=== PATIENT | female | born 1950 | race Caucasian/White ===

== ENCOUNTER 2018-08-12 13:03 | Emergency (ER) | payer OTHER ==
[~2018-08-12] VITALS: Ht 165.1 cm; Wt 97.5 kg
[~2018-08-12 13:03] MED LIST: CIPRO500 MG PO; FLAGYL500 MG PO; INSULIN; METFORMIN HCL500 MG PO; MIRALAX17 GM PO; VESICARE10 M1 PO; ZOLOFT50 MG PO
[2018-08-12] MEDS ORDERED: LANTUS SUBQ (13:12)
[2018-08-12] MEDS ORDERED: NOVOLOG100 UNIT/1 SUBQ (13:12)
[2018-08-12] MEDS ORDERED: FENOFIBRATE134 MG PO (13:18)
[2018-08-12] MEDS ORDERED: VITAMIN D3400 UNIT PO (13:19)
[2018-08-12] MEDS ORDERED: ASPIR 8181 M1 PO (13:21)
[2018-08-12] MEDS ORDERED: SLOW-MAG64 M1 PO (13:21)
[2018-08-12] MEDS ORDERED: AMLODIPINE BESY10 MG PO (13:22)
[2018-08-12] MEDS ORDERED: COZAAR 25 MG TA25 M1 PO (13:23)
[2018-08-12] MEDS ORDERED: B-121000 MC2 PO (13:24)
[2018-08-12] MEDS ORDERED: ATORVASTATIN CA40 MG PO (13:24)
[2018-08-12 13:35] LABS: ABSOLUTE EOSINOPHILS 0.1 thou/uL (0.0-0.7); ABSOLUTE LYMPHOCYTES 1.2 thou/uL (0.8-5.3); ABSOLUTE MONOCYTES 0.4 thou/uL (0.0-1.2); BASOPHILS 0.8 %; EOSINOPHILS 2.2 %; HEMATOCRIT 37.7 % (37.0-47.0); HEMOGLOBIN 12.3 gm/dL (12.0-15.0); MCH 28.6 pg (26.0-34.0); MCHC 32.8 g/dL (28.0-37.0); MCV 87.1 fL (80.0-100.0); MONOCYTES 7.4 %; MPV 8.1 fl. (7.2-11.1); NUCLEATED RBCS 0 /100WBC; PLATELET COUNT* 255 thou/uL (150-400); POLYS 68.6 %; RBC 4.32 mil/uL (4.20-5.00); RDW-CV 14.4 % (10.5-14.5); WBC 5.9 thou/uL (4.0-11.0)
[2018-08-12 13:48] LABS: ANION GAP 11 mmol/L (7-16); BUN 27 mg/dL (7-18); CALCIUM 9.2 mg/dL (8.5-10.1); CHLORIDE 107 mmol/L (98-107); CO2 25 mmol/L (21-32); CREATININE 1.4 mg/dL (0.6-1.3); GLUCOSE 161 mg/dL (70-99); POTASSIUM 4.1 mmol/L (3.5-5.1); SODIUM 143 mmol/L (136-145)
[2018-08-12 13:58] LABS: APTT 26.4 Seconds (25.0-31.3); PROTIME 10.6 Seconds (9.20-11.50)
[2018-08-12 14:00] LABS: ALBUMIN 3.7 g/dL (3.4-5.0); ALKALINE PHOSPHATASE 52 U/L (46-116); CK-MB MASS 2.4 ng/mL (<0.5-3.6); LIPASE 108 U/L (73-393); MAGNESIUM 1.6 mg/dL (1.8-2.4); NT-PRO BRAIN NAT PEPTIDE 66 pg/mL (<300); SGOT 16 U/L (15-37); SGPT 30 U/L (30-65); TOTAL BILIRUBIN 0.4 mg/dL (<0.1-1.0); TOTAL PROTEIN 6.9 g/dL (6.4-8.2); TROPONIN-I LEVEL <0.06 ng/mL (<0.06)
[2018-08-12 14:19] VITALS: BP 159/72
--- NOTE | 2018-08-13 14:28 | EKG ---
[place] [address] ELECTROCARDIOGRAM REPORT Name: BRANT HIGGINBOTHAM Room: [facility]#: [id number] Admission: 08/12/18 Attend Phys: Discharge: 08/12/18 Date of : 50 Report #: [id number] THIS REPORT FOR: //name// [facility] ED Test Date: 2018-08-12 Test Time: 13:06:36 Pat Name: BRANT HIGGINBOTHAM Department: Room: Gender: F Cashier Gambling: ADA : 1950 Requested By: Vamsi Livingston Order Number: [id number] MD: Fernando Pham Measurements Intervals Crane Rate: 67 P: 66 UT: 161 QRS: -53 QRSD: 124 T: 88 QT: 410 QTc: 433 Interpretive Statements Sinus rhythm Left bundle branch block No previous ECG available for comparison Electronically Signed On 08-13-2018 14:27:54 CDT by Fernando Pham [email or web address] <ELECTRONICALLY SIGNED> By: Fernando Pham MD, [facility] 08/13/18 1427 1306 1306 Fernando Pham MD, FACC /EPI
== END 2018-08-12 14:19 | disposition home or self-care (01) ==
LOC: M.ERS 13:03
PROVIDERS: Family Medicine
DX: R07.89 Other chest pain (principal); K21.9 Gastro-esophageal reflux disease without esophagitis; E11.9 Type 2 diabetes mellitus without complications; Z90.49 Acquired absence of other specified parts of digestive tract; Z90.710 Acquired absence of both cervix and uterus